=== PATIENT | male | born 1960 | race Caucasian/White ===

== ENCOUNTER 2020-09-27 07:01 | Outpatient (CLI) | payer SELFPAY ==
[2020-09-27 07:10] VITALS: BP 144/86; PULSE 68; RESP 18; TEMP 36.8; O2SAT 99; BMI 30.5
[2020-09-27 07:45] VITALS: BP 127/76; PULSE 62; RESP 17; TEMP 36.6; O2SAT 95
[2020-09-27 08:45] VITALS: BP 143/88; PULSE 59; RESP 18; TEMP 36.6; O2SAT 96
== END 2020-09-27 07:02 | disposition home or self-care (01) ==
PROVIDERS: PCP Internal Medicine; Visit Provider Nurse Practitioner
DX: U07.1 COVID-19 (principal)
CPT/HCPCS: 96365